=== PATIENT | male | born 1985 | race African-American/Black ===

== ENCOUNTER 2019-10-24 11:39 | Emergency (ER) | payer BC ==
[~2019-10-24] VITALS: Ht 182.9 cm; Wt 90.0 kg
[2019-10-24 12:39] VITALS: BP 105/60
== END 2019-10-24 16:51 | disposition left against medical advice (07) ==
LOC: ER 11:39
DX: Z53.21 Procedure and treatment not carried out due to patient leaving prior to being seen by health care provider (principal)